=== PATIENT | male | born 1985 | race African-American/Black ===

== ENCOUNTER 2021-12-02 14:45 | Inpatient (IN) | payer SELFPAY ==
[~2021-12-02] VITALS: Ht 177.8 cm; Wt 137.4 kg
[2021-12-02 17:08] LABS: BASOPHILS % 0.6 % (0.0-2.0); EOSINOPHILS % 1.8 % (0.0-5.0); HEMATOCRIT. 45.7 % (42.0-52.0); HEMOGLOBIN. 15.1 g/dL (14.0-18.0); LYMPHOCYTES % 30.2 % (20.0-50.0); MEAN CORPUSCULAR HEMOGLOBIN 27.1 pg (28.0-32.0); MEAN CORPUSCULAR VOLUME 82.3 fL (80.0-94.0); MEAN PLATELET VOLUME 8.5 fl (7.4-10.4); MONOCYTES % 6.8 % (2.0-8.0); NEUTROPHILS % 60.6 % (40.0-76.0); PLATELET 183 x1000/uL (130-400); RED BLOOD CELL COUNT 5.55 mill/uL (4.7-6.1)
[2021-12-02 17:13] LABS: CHLORIDE 111 mEq/L (98-107)
[2021-12-02] MEDS ORDERED: ASPIRIN 81MG TABLET PO ONE (21:00)
[2021-12-02] MEDS ORDERED: FUROSEMIDE 40MG/4ML VIAL IV ONE (21:00)
[2021-12-02] MEDS ORDERED: POTASSIUM CHLORIDE 20MEQ TABLET SR PO ONE (21:45)
[2021-12-02] MEDS ORDERED: MAGNESIUM/ALUMINUM HYDROXIDE/SIMETHICONE 30ML UDC PO PRN (22:45)
[2021-12-02] MEDS ORDERED: HYDROCODONE/ACETAMINOPHEN 5/325MG TABLET PO PRN (22:45)
[2021-12-02] MEDS ORDERED: GUAIFENESIN 200MG/10ML SUGAR FREE UDC PO PRN (22:45)
[2021-12-02] MEDS ORDERED: ACETAMINOPHEN 325MG TABLET PO PRN ×2 (22:45)
[2021-12-02] MEDS ORDERED: ONDANSETRON HCL 4MG/2ML INJ IV PRN (22:45)
[2021-12-02] MEDS ORDERED: CLONIDINE 0.1MG TABLET PO PRN (22:45)
[2021-12-02] MEDS: ENOXAPARIN 40MG/0.4ML SYR SUBCUT SCH (22:51)
[2021-12-02 23:01] LABS: *AMPHETAMINES SCREEN URINE NEGATIVE (NEGATIVE); *BARBITURATES SCREEN URINE NEGATIVE (NEGATIVE); *BENZODIAZEPINES SCREEN URINE NEGATIVE (NEGATIVE); *COCAINE SCREEN URINE NEGATIVE (NEGATIVE); CANNABINOID URINE SCREEN NEGATIVE (NEGATIVE); METHADONE URINE SCREEN NEGATIVE (NEGATIVE); OPIATES URINE SCREEN NEGATIVE (NEGATIVE); PHENCYCLIDINE URINE SCREEN NEGATIVE (NEGATIVE)
[2021-12-03 00:30] VITALS: BP 143/87
[2021-12-03 01:00] VITALS: BP 143/86
[2021-12-03 06:45] LABS: BASOPHILS % 0.8 % (0.0-2.0); HEMATOCRIT. 45.8 % (42.0-52.0); HEMOGLOBIN. 15.1 g/dL (14.0-18.0); LYMPHOCYTES % 36.9 % (20.0-50.0); MEAN CORPUSCULAR HEMOGLOBIN 27.5 pg (28.0-32.0); MEAN CORPUSCULAR VOLUME 83.2 fL (80.0-94.0); MEAN PLATELET VOLUME 8.8 fl (7.4-10.4); MONOCYTES % 8.3 % (2.0-8.0); PLATELET 187 x1000/uL (130-400); RED CELL DISTRIBUTION WIDTH 14.8 % (11.6-14.6)
[2021-12-03 06:53] LABS: CHLORIDE 106 mEq/L (98-107)
[2021-12-03 06:59] LABS: PHOSPHORUS 3.9 mg/dL (2.5-4.9)
[2021-12-03 08:00] VITALS: BP 138/96
[2021-12-03] MEDS: ENOXAPARIN 40MG/0.4ML SYR SUBCUT SCH ×2 (08:27→22:37)
[2021-12-03] MEDS ORDERED: FUROSEMIDE 40MG/4ML VIAL IV SCH (09:00)
[2021-12-03 12:00] VITALS: BP 140/89
[2021-12-03 16:00] VITALS: BP 113/76
[2021-12-03] MEDS: FUROSEMIDE 40MG/4ML VIAL IV SCH (17:41)
[2021-12-03 20:00] VITALS: BP 127/88
[2021-12-03] MEDS: METOPROLOL TARTRATE 25MG TABLET PO SCH (22:37)
[2021-12-04] VITALS: BP 105/75
[2021-12-04 04:00] VITALS: BP 130/80
[2021-12-04] MEDS: FUROSEMIDE 40MG/4ML VIAL IV SCH ×2 (06:50→17:34)
[2021-12-04 08:00] VITALS: BP 125/80
[2021-12-04 08:12] LABS: BASOPHILS % 0.5 % (0.0-2.0); EOSINOPHILS % 2.4 % (0.0-5.0); HEMATOCRIT. 48.8 % (42.0-52.0); HEMOGLOBIN. 16.5 g/dL (14.0-18.0); LYMPHOCYTES % 36.7 % (20.0-50.0); MEAN CORPUSCULAR HEMOGLOBIN 27.3 pg (28.0-32.0); MEAN CORPUSCULAR VOLUME 81.1 fL (80.0-94.0); MEAN PLATELET VOLUME 8.6 fl (7.4-10.4); MONOCYTES % 9.2 % (2.0-8.0); NEUTROPHILS % 51.2 % (40.0-76.0); PLATELET 185 x1000/uL (130-400); RED BLOOD CELL COUNT 6.02 mill/uL (4.7-6.1); RED CELL DISTRIBUTION WIDTH 14.6 % (11.6-14.6)
[2021-12-04] MEDS: METOPROLOL TARTRATE 25MG TABLET PO SCH ×2 (08:31→22:19)
[2021-12-04] MEDS: ENOXAPARIN 40MG/0.4ML SYR SUBCUT SCH ×2 (08:31→22:19)
[2021-12-04 08:59] LABS: CHLORIDE 103 mEq/L (98-107)
[2021-12-04 12:00] VITALS: BP 116/78
[2021-12-04 16:00] VITALS: BP 110/80
[2021-12-04] MEDS ORDERED: NALOXONE HCL 0.4MG/ML VIAL IV PRN (18:15)
[2021-12-04 20:00] VITALS: BP 138/69
[2021-12-05] VITALS: BP 128/84
[2021-12-05 04:00] VITALS: BP 115/74
[2021-12-05] MEDS: FUROSEMIDE 40MG/4ML VIAL IV SCH ×2 (06:01→17:02)
[2021-12-05 08:00] VITALS: BP 109/65
[2021-12-05] MEDS: METOPROLOL TARTRATE 25MG TABLET PO SCH ×2 (09:00→22:19)
[2021-12-05] MEDS: ENOXAPARIN 40MG/0.4ML SYR SUBCUT SCH ×2 (09:22→22:19)
[2021-12-05 12:00] VITALS: BP 121/59
[2021-12-05 16:00] VITALS: BP 128/84
[2021-12-05 20:00] VITALS: BP 119/60
[2021-12-06] VITALS: BP 113/89
[2021-12-06 04:00] VITALS: BP 124/70
[2021-12-06] MEDS: FUROSEMIDE 40MG/4ML VIAL IV SCH (06:36)
[2021-12-06 07:00] LABS: BASOPHILS % 0.6 % (0.0-2.0); EOSINOPHILS % 2.7 % (0.0-5.0); HEMOGLOBIN. 15.8 g/dL (14.0-18.0); MEAN CORPUSCULAR HEMOGLOBIN 27.4 pg (28.0-32.0); MEAN CORPUSCULAR VOLUME 81.3 fL (80.0-94.0); MEAN PLATELET VOLUME 8.5 fl (7.4-10.4); MONOCYTES % 8.4 % (2.0-8.0); NEUTROPHILS % 49.3 % (40.0-76.0); PLATELET 187 x1000/uL (130-400); RED BLOOD CELL COUNT 5.78 mill/uL (4.7-6.1); RED CELL DISTRIBUTION WIDTH 14.6 % (11.6-14.6)
[2021-12-06 08:00] VITALS: BP 130/85
[2021-12-06 08:15] LABS: CHLORIDE 104 mEq/L (98-107)
[2021-12-06 08:29] LABS: PHOSPHORUS 4.5 mg/dL (2.5-4.9)
[2021-12-06] MEDS: METOPROLOL TARTRATE 25MG TABLET PO SCH (09:06)
[2021-12-06] MEDS: ENOXAPARIN 40MG/0.4ML SYR SUBCUT SCH (09:06)
[2021-12-06 12:00] VITALS: BP 118/87
[2021-12-06] MEDS ORDERED: METO25TA6 PO (13:38)
[2021-12-06] MEDS ORDERED: FURO40TA5 PO (13:38)
[2021-12-06] MEDS ORDERED: SPIR25TA PO (13:38)
[2021-12-06 13:55] VITALS: BP 118/87
[2021-12-06] MEDS ORDERED: FUROSEMIDE 40MG TABLET PO SCH (21:00)
[2021-12-07] MEDS ORDERED: SPIRONOLACTONE 25MG TABLET PO SCH (09:00)
== END 2021-12-06 15:30 | disposition home or self-care (01) | DRG 194 ==
LOC: ER 14:45 → 8WST 21:44 → EDBEDREQTM 21:55 → EDBEDREQ 21:55 → SUPCPDRO 22:30 → ENRESERV 23:56
PROVIDERS: ADMIT Internal Medicine; ATTEND Internal Medicine
DX: I11.0 Hypertensive heart disease with heart failure (principal); N17.9 Acute kidney failure, unspecified; I50.23 Acute on chronic systolic (congestive) heart failure; E66.9 Obesity, unspecified; F17.210 Nicotine dependence, cigarettes, uncomplicated; I42.0 Dilated cardiomyopathy; Z82.49 Family history of ischemic heart disease and other diseases of the circulatory system; Z68.41 Body mass index [BMI] 40.0-44.9, adult; I34.0 Nonrheumatic mitral (valve) insufficiency; I07.1 Rheumatic tricuspid insufficiency; Z20.822 Contact with and (suspected) exposure to COVID-19
CPT/HCPCS: 36415; 71045; 80048; 80053; 80305; 83735; 83880; 84100; 84484; 85025; 87426; 93005; 93306; 93970; 99291; J1650; J1940

== ENCOUNTER 2022-04-03 21:16 | Emergency (ER) | payer MEDICAID ==
[~2022-04-03] VITALS: Ht 177.8 cm; Wt 135.0 kg
[~2022-04-03 21:16] MED LIST: FURO40TA5 PO; METO25TA6 PO; SPIR25TA PO
[2022-04-03 21:22] VITALS: BP 156/104
[2022-04-03] MEDS ORDERED: FURO-151 MT (22:21)
[2022-04-03] MEDS ORDERED: SPIR25TA6 MT (22:21)
[2022-04-03] MEDS ORDERED: METO25TA6 MT (22:21)
== END 2022-04-03 22:26 | disposition home or self-care (01) ==
LOC: ER 21:16
DX: Z76.0 Encounter for issue of repeat prescription (principal); I11.0 Hypertensive heart disease with heart failure; I50.9 Heart failure, unspecified; Z79.899 Other long term (current) drug therapy
CPT/HCPCS: 99283

== ENCOUNTER 2022-04-05 23:13 | Emergency (ER) | payer MEDICAID ==
[~2022-04-05] VITALS: Ht 177.8 cm; Wt 163.5 kg
[~2022-04-05 23:13] MED LIST changes: +FURO-151 MT; +METO25TA6 MT; +SPIR25TA6 MT
[2022-04-06] MEDS ORDERED: FUROSEMIDE 40MG/4ML VIAL IV ONE (01:30)
[2022-04-06 02:06] LABS: CHLORIDE 102 mEq/L (98-107)
[2022-04-06 02:11] LABS: BASOPHILS % 0.5 % (0.0-2.0); EOSINOPHILS % 1.6 % (0.0-5.0); HEMATOCRIT. 45.3 % (42.0-52.0); HEMOGLOBIN. 14.7 g/dL (14.0-18.0); LYMPHOCYTES % 28.4 % (20.0-50.0); MEAN CORPUSCULAR HEMOGLOBIN 27.5 pg (28.0-32.0); MEAN CORPUSCULAR VOLUME 84.6 fL (80.0-94.0); MEAN PLATELET VOLUME 8.4 fl (7.4-10.4); MONOCYTES % 12.3 % (2.0-8.0); NEUTROPHILS % 57.2 % (40.0-76.0); PLATELET 177 x1000/uL (130-400); RED BLOOD CELL COUNT 5.35 mill/uL (4.7-6.1); RED CELL DISTRIBUTION WIDTH 15.2 % (11.6-14.6)
[2022-04-06 03:49] VITALS: BP 138/83
== END 2022-04-06 03:51 | disposition home or self-care (01) ==
LOC: ER 23:13
DX: I50.9 Heart failure, unspecified (principal)
CPT/HCPCS: 36415; 71045; 80053; 83880; 84484; 85025; 93005; 96374; 99285; J1940; Z7610

== ENCOUNTER 2022-09-28 10:24 | Inpatient (IN) | payer MEDICAID ==
[~2022-09-28] VITALS: Ht 180.3 cm; Wt 166.5 kg
[2022-09-28] MEDS ORDERED: NITROGLYCERIN OINT 1GM/INCH UDPKT TD ONE (11:15)
[2022-09-28] MEDS ORDERED: ASPIRIN 81MG TABLET PO ONE (11:15)
[2022-09-28] MEDS ORDERED: FUROSEMIDE 40MG/4ML VIAL IV ONE (11:15)
[2022-09-28 11:53] LABS: BASOPHILS % 0.8 % (0.0-2.0); EOSINOPHILS % 0.7 % (0.0-5.0); HEMATOCRIT. 56.8 % (42.0-52.0); HEMOGLOBIN. 17.7 g/dL (14.0-18.0); LYMPHOCYTES % 26.5 % (20.0-50.0); MEAN CORPUSCULAR HEMOGLOBIN 26.4 pg (28.0-32.0); MEAN CORPUSCULAR VOLUME 84.9 fL (80.0-94.0); MEAN PLATELET VOLUME 8.7 fl (7.4-10.4); MONOCYTES % 6.7 % (2.0-8.0); NEUTROPHILS % 65.3 % (40.0-76.0); PLATELET 218 x1000/uL (130-400); RED BLOOD CELL COUNT 6.69 mill/uL (4.7-6.1)
[2022-09-28 12:14] LABS: CHLORIDE 104 mEq/L (98-107)
[2022-09-28 13:06] LABS: D-DIMER 0.72 mg/L FEU (<0.50); INR 1.2; PARTIAL THROMBOPLASTIN TIME 28.8 sec (23.4-31.0); PROTHROMBIN TIME 13.2 sec (9.6-11.0)
[2022-09-28] MEDS ORDERED: ENOXAPARIN 150MG/ML SYR SUBCUT ONE (13:15)
[2022-09-28 21:37] VITALS: BP 107/73
[2022-09-28 22:00] VITALS: BP 107/73
[2022-09-29] VITALS: BP 117/72
[2022-09-29 04:00] VITALS: BP 118/83
[2022-09-29 06:31] LABS: BASOPHILS % 0.7 % (0.0-2.0); EOSINOPHILS % 0.4 % (0.0-5.0); HEMATOCRIT. 48.4 % (42.0-52.0); HEMOGLOBIN. 15.8 g/dL (14.0-18.0); LYMPHOCYTES % 27.2 % (20.0-50.0); MEAN CORPUSCULAR HEMOGLOBIN 26.9 pg (28.0-32.0); MEAN CORPUSCULAR VOLUME 82.4 fL (80.0-94.0); MEAN PLATELET VOLUME 8.7 fl (7.4-10.4); MONOCYTES % 9.6 % (2.0-8.0); NEUTROPHILS % 62.1 % (40.0-76.0); PLATELET 189 x1000/uL (130-400); RED BLOOD CELL COUNT 5.87 mill/uL (4.7-6.1)
[2022-09-29 06:55] LABS: CHLORIDE 102 mEq/L (98-107)
[2022-09-29 07:09] LABS: HEPATITIS B SURFACE ANTIGEN NEGATIVE
[2022-09-29 08:00] VITALS: BP 131/107
[2022-09-29] MEDS: LISINOPRIL 5MG TABLET PO SCH (08:47)
[2022-09-29] MEDS: ASPIRIN 81MG TABLET PO SCH (08:47)
[2022-09-29] MEDS: LEVETIRACETAM 500MG TABLET PO SCH ×2 (08:47→21:14)
[2022-09-29] MEDS: CARVEDILOL 3.125 MG TABLET PO SCH ×2 (08:47→21:00)
[2022-09-29] MEDS: SPIRONOLACTONE 25MG TABLET PO SCH (08:48)
[2022-09-29] MEDS: ENOXAPARIN 40MG/0.4ML SYR SUBCUT SCH ×2 (08:48→21:15)
[2022-09-29] MEDS ORDERED: FUROSEMIDE 40MG TABLET PO SCH (09:00)
[2022-09-29] MEDS ORDERED: ENOXAPARIN 40MG/0.4ML SYR SUBCUT SCH (09:00)
[2022-09-29 12:00] VITALS: BP 121/94
[2022-09-29] MEDS ORDERED: FUROSEMIDE 100MG/10ML VIAL IVP SCH (12:00)
[2022-09-29] MEDS ORDERED: METOLAZONE 2.5MG TABLET PO NR (12:00)
[2022-09-29 16:00] VITALS: BP 118/74
[2022-09-29] MEDS: FUROSEMIDE 100MG/10ML VIAL IVP SCH (16:51)
[2022-09-30] VITALS: BP 113/81
[2022-09-30 04:00] VITALS: BP 116/89
[2022-09-30 08:00] VITALS: BP 119/59
[2022-09-30] MEDS: LEVETIRACETAM 500MG TABLET PO SCH ×2 (09:29→20:53)
[2022-09-30] MEDS: SPIRONOLACTONE 25MG TABLET PO SCH (09:29)
[2022-09-30] MEDS: CARVEDILOL 3.125 MG TABLET PO SCH ×2 (09:29→20:54)
[2022-09-30] MEDS: FUROSEMIDE 100MG/10ML VIAL IVP SCH ×3 (09:30→17:05)
[2022-09-30] MEDS: ENOXAPARIN 40MG/0.4ML SYR SUBCUT SCH ×2 (09:30→20:53)
[2022-09-30] MEDS: ASPIRIN 81MG TABLET PO SCH (09:30)
[2022-09-30] MEDS: LISINOPRIL 5MG TABLET PO SCH (09:30)
[2022-09-30] MEDS ORDERED: METOLAZONE 2.5MG TABLET PO NR (11:00)
[2022-09-30 12:00] VITALS: BP 110/67
[2022-09-30 12:21] LABS: CHLORIDE 98 mEq/L (98-107)
[2022-09-30 16:00] VITALS: BP 124/80
[2022-09-30 20:00] VITALS: BP 127/87
[2022-09-30] MEDS ORDERED: HYDROCODONE/ACETAMINOPHEN 5/325MG TABLET PO PRN (21:45)
[2022-09-30] MEDS ORDERED: NALOXONE HCL 0.4MG/ML VIAL IV PRN (21:45)
[2022-10-01] VITALS: BP 105/60
[2022-10-01 04:00] VITALS: BP 101/61
[2022-10-01 08:00] VITALS: BP 114/60
[2022-10-01] MEDS ORDERED: METOLAZONE 2.5MG TABLET PO SCH (09:00)
[2022-10-01] MEDS: LEVETIRACETAM 500MG TABLET PO SCH ×2 (09:54→21:11)
[2022-10-01] MEDS: SPIRONOLACTONE 25MG TABLET PO SCH (09:55)
[2022-10-01] MEDS: ASPIRIN 81MG TABLET PO SCH (09:56)
[2022-10-01] MEDS: CARVEDILOL 3.125 MG TABLET PO SCH ×2 (09:56→21:00)
[2022-10-01] MEDS: LISINOPRIL 5MG TABLET PO SCH (09:56)
[2022-10-01] MEDS: ENOXAPARIN 40MG/0.4ML SYR SUBCUT SCH ×2 (09:59→21:12)
[2022-10-01] MEDS: FUROSEMIDE 100MG/10ML VIAL IVP SCH ×2 (10:07→18:38)
[2022-10-01 12:00] VITALS: BP 127/43
[2022-10-01 16:00] VITALS: BP 143/65
[2022-10-01 20:00] VITALS: BP 103/50
[2022-10-02] VITALS: BP 112/65
[2022-10-02 04:00] VITALS: BP 119/74
[2022-10-02] MEDS: FUROSEMIDE 100MG/10ML VIAL IVP SCH (06:22)
[2022-10-02 08:30] VITALS: BP 130/70
[2022-10-02] MEDS: ASPIRIN 81MG TABLET PO SCH (09:05)
[2022-10-02] MEDS: LISINOPRIL 5MG TABLET PO SCH (09:05)
[2022-10-02] MEDS: SPIRONOLACTONE 25MG TABLET PO SCH (09:06)
[2022-10-02] MEDS: ENOXAPARIN 40MG/0.4ML SYR SUBCUT SCH (09:06)
[2022-10-02] MEDS: LEVETIRACETAM 500MG TABLET PO SCH (09:06)
[2022-10-02] MEDS: CARVEDILOL 3.125 MG TABLET PO SCH (09:09)
[2022-10-02 12:26] VITALS: BP 108/61
[2022-10-02] MEDS ORDERED: FURO80TA87 MT (13:27)
[2022-10-02] MEDS ORDERED: LISI-186 PO (13:27)
[2022-10-02] MEDS ORDERED: SPIR25TA PO (13:27)
[2022-10-02] MEDS ORDERED: COR3 PO (13:27)
[2022-10-02 13:43] VITALS: BP 108/61
== END 2022-10-02 15:10 | disposition home or self-care (01) | DRG 194 ==
LOC: ER 10:24 → MICUSO 14:32 → EDBEDREQTM 14:36 → EDBEDREQ 14:36 → 7WST 21:25
PROVIDERS: ADMIT Internal Medicine; ATTEND Internal Medicine
DX: I50.23 Acute on chronic systolic (congestive) heart failure (principal); J96.01 Acute respiratory failure with hypoxia; I42.9 Cardiomyopathy, unspecified; Z68.43 Body mass index [BMI] 50.0-59.9, adult; E66.01 Morbid (severe) obesity due to excess calories; Z91.14 Patient's other noncompliance with medication regimen; Z79.899 Other long term (current) drug therapy
CPT/HCPCS: 36415; 71045; 76700; 78582; 80048; 80053; 83880; 84484; 85025; 85379; 86803; 86850; 86900; 87340; 93005; 93306; 93970; 99285; A9558; C1893; J1650; J1940